=== PATIENT | male | born 1965 | race Caucasian/White ===

== ENCOUNTER 2021-05-19 21:06 | Emergency (ER) | payer OTHER ==
[~2021-05-19] VITALS: Ht 175.3 cm; Wt 113.4 kg
[2021-05-19 21:37] LABS: URINE BILIRUBIN NEGATIVE (Negative); URINE BLOOD NEGATIVE (Negative); URINE CLARITY CLEAR; URINE COLOR YELLOW; URINE GLUCOSE-RANDOM NEGATIVE (Negative); URINE KETONES NEGATIVE (Negative); URINE LEUKOCYTES NEGATIVE (Negative); URINE NITRITE NEGATIVE (Negative); URINE PROTEIN NEGATIVE (Negative); URINE SPECIFIC GRAVITY 1.025 (1.005-1.030)
[2021-05-20] MEDS ORDERED: HYDROCODON-ACE1 EAC8 PO (03:39)
[2021-05-20] MEDS ORDERED: ZOFRAN ODT4 MG PO (03:40)
[2021-05-20 04:09] VITALS: BP 163/105
== END 2021-05-20 04:11 | disposition home or self-care (01) ==
LOC: M.ERS 21:06
PROVIDERS: Physician Assistant
DX: N23 Unspecified renal colic (principal); Z87.442 Personal history of urinary calculi